=== PATIENT | female | born 1975 | race African-American/Black ===

== ENCOUNTER 2022-04-07 11:10 | Emergency (ER) | payer OTHER, SELFPAY ==
--- NOTE | ~2022-04-07 | XR_ITS ---
EXAMINATION: XR chest 2V DATE: 04/07/2022 13:19 INDICATION: Weakness during dialysis TECHNIQUE: frontal and lateral views of the chest were obtained. COMPARISON: None FINDINGS: Large-bore dual-lumen right internal jugular central venous catheter with distal tip in the right atr ium. Calcified nodule at the right lower lung zone consistent with old granulomatous disease. No othe r airspace opacities, pulmonary edema, pleural effusion or pneumothorax. The cardiomediastinal silhou ette is within normal limits for AP technique. A few skin sushil project over the lateral right lowe r thorax. IMPRESSION: 1. No acute cardiopulmonary disease. Reviewed, dictated and finalized at location A.
[2022-04-07 11:24] VITALS: BP 146/75; PULSE 85; RESP 18; TEMP 36.1; O2SAT 98
[2022-04-07 11:58] VITALS: PULSE 90; RESP 14
[2022-04-07 12:00] VITALS: PULSE 88; RESP 0
[2022-04-07 12:15] VITALS: PULSE 82; RESP 14
[2022-04-07 12:33] VITALS: PULSE 81; RESP 13
--- NOTE | 2022-04-07 12:40 | ECG_ITS ---
Measurements Intervals [place] Rate: 80 P: 17 ID: [id number] QRS: 17 QRSD: 95 T: 143 QT: 392 QTc: 453 Interpretive Statements SINUS RHYTHM LEFT VENTRICULAR HYPERTROPHY WITH ST-T CHANGE BORDERLINE R WAVE PROGRESSION, ANTERIOR LEADS INFERIOR INFARCT, AGE INDETERMINATE BASELINE ARTIFACT- I, II, AVR, AVL ABNORMAL ECG Electronically Signed On 04-07-2022 13:03:52 CDT by Adilson Gregorio D.O.
[2022-04-07 13:05] LABS: Basophils Percent Auto 0.4 % (0.2-1.2); Eosinophils Absolute Auto 0.1 K/mm3 (0-0.3); Eosinophils Percent Auto 1.8 % (0-4.4); Hematocrit 34.1 % (37.0-47.0); Immature Granulocyte Absolute 0.05 K/mm3 (0.00-0.031); Immature Granulocyte Percent A 0.9 % (0-0.5); Lymphocytes Absolute Auto 1.27 K/mm3 (0.9-3.2); Lymphocytes Percent Auto 23.2 % (18.3-44.2); Mean Corpuscular HGB Conc 29.3 g/dl (32-36); Mean Corpuscular Hemoglobin 27.1 pg (26-34); Mean Corpuscular Volume 92.4 fl (80-100); Mean Platelet Volume 9.6 fl (7.4-10.4); Monocytes Absolute Auto 0.6 K/mm3 (0.1-0.6); Monocytes Percent Auto 10.4 % (2.6-8.5); Neutrophils Absolute Auto 3.5 K/mm3 (1.3-6.7); Neutrophils Percent Auto 63.3 % (45.5-73.1); Platelet Count Result 285 k/mm3 (150-375); Red Blood Count 3.69 M/mm3 (4.2-5.4); Red Cell Distribution Width 17.9 % (11.5-14.5); White Blood Count 5.5 K/mm3 (4.5-10.0)
[2022-04-07 13:15] LABS: Alanine Aminotransferase 9 U/L (6-35); Albumin Level 3.6 g/dL (3.5-5.1); Alkaline Phosphatase 63 U/L (38-126); Anion Gap 10 mmol/L (8-16); Aspartate Amino Transferase 19 U/L (14-36); Bilirubin,Total 0.3 mg/dL (0.2-1.3); Blood Urea Nitrogen 47 mg/dL (7-17); Calcium 8.8 mg/dL (8.4-10.2); Carbon Dioxide 23 mmol/L (22-30); Chloride 106 mmol/L (98-107); Estimated CRCL calculation 8 ml/min; Estimated Glomerular Filt Rate 6; Glucose 187 mg/dL (65-110); Potassium 4.6 mmol/L (3.4-5.0); Sodium 139 mmol/L (137-145)
[2022-04-07 13:42] LABS: Hypochromasia 1+ (NORMAL); Platelet Estimate Adequate (Adequate)
[2022-04-07 13:43] LABS: Anisocytosis 1+ (NORMAL)
--- NOTE | 2022-04-07 13:47 | ED.GENADULT ---
HPI - General Adult General Chief complaint: Unspecified Stated complaint: I need my dialysis , covid + Time Seen by Provider: 04/07/22 12:31 Source: patient History of Present Illness HPI narrative: Patient presents requesting dialysis. Reports she was recently at [facility] approximately 5 days ago diagnosed with COVID. She was getting her dialysis was recovering and discharge. She went to dialysis today and reports she was sent to the emergency room as she is not able to receive dialysis as an outpatient with COVID. Patient reports she generally feels weak but has no other complaints. Review of Systems Review of Systems: CONSTITUTIONAL: Denies fever, chills, or sweats. EYES: Denies visual changes, redness, or discharge. ENT: Denies rhinorrhea, congestion, sore throat, or otalgia. CARDIOVASCULAR: Denies chest pain, palpitations, or edema. RESPIRATORY: Denies cough or dyspnea. GASTROINTESTINAL: Denies abdominal pain, nausea, vomiting, or diarrhea. GENITOURINARY: Denies dysuria or hematuria. SKIN: Denies rash or itching. MUSCULOSKELETAL: Denies back pain, joint pain, or myalgia. NEUROLOGIC: Denies headache, numbness, dizziness, or focal weakness. PSYCHIATRIC: Denies anxiety or depression. All systems reviewed & are unremarkable except as noted in HPI and below PMFSH Past Medical History Medical History CKD (chronic kidney disease) Exam Narrative: GENERAL: Well-appearing, well-nourished, and in no acute distress. HEAD: Normocephalic, atraumatic. EYES: PERRLA and EOMI. ENT: Nares clear, no rhinorrhea or epistaxis. Mucous membranes moist. NECK: Supple. No masses. No JVD CHEST: Clear to auscultation. No respiratory distress. No wheezes rales or rhonchi HEART: Regular rate and rhythm. No murmur heard. Normal peripheral pulses. ABDOMEN: Soft, nontender, nondistended, normal active bowel sounds. EXTREMITIES: Normal range of motion. No edema. SKIN: Warm, dry, no rash. NEURO: No focal deficits. Alert and oriented x3. PSYCH: Normal mood and affect. Course Reevaluation(s) Reevaluation #1: Case discussed with Dr. Rasheed patient's shelter supervisor who reached out to the dialysis center. Dialysis center reported patient presented 2 hours late and that is why she was unable to get dialysis today. She is able to receive dialysis as an outpatient despite her COVID-positive. She is scheduled for Monday. All this was reviewed with the patient. Patient is comfortable outpatient plan. Date: 04/07/22 Time: 13:48 Vital Signs Vital signs: Vital Signs Temperature 36.1 C L 04/07/22 11:24 Pulse Rate 85 04/07/22 11:24 Respiratory Rate 18 04/07/22 11:24 Blood Pressure 146/75 H 04/07/22 11:24 Pulse Oximetry 98 04/07/22 11:24 Temperature 36.1 C L 04/07/22 11:24 Pulse Rate 80 04/07/22 14:24 Respiratory Rate 12 04/07/22 14:24 Blood Pressure 174/97 H 04/07/22 14:24 Pulse Oximetry 98 04/07/22 14:24 Medical Decision Making MDM Narrative Medical decision making narrative: H&P as above, vss, pt looks clinically well, exam reassuring, labs clinic unremarkable for acute process, img without acute process, additional labs/img considered, symptomatic relief available as needed, on reevaluation pt continues to looks clinically well. Discussed case with Dr. Squires who reach out to dialysis center. Patient presented late to her her dialysis patient is scheduled for 830 Monday morning for dialysis given reassuring work-up she is able to wait until that time. Low concern for hyperkalemia severe sepsis, severe dehydration, pulmonary edema. plan to tx/monitor as op w/ pcm f/u findings/plan discussed with pt, pt agree/comfortable with plan, return precautions given Vital Signs Vital Signs: Vital Signs Temperature 36.1 C L 04/07/22 11:24 Pulse Rate 85 04/07/22 11:24 Respiratory Rate 18 04/07/22 11:24 Blood Pressure 146/75 H 04/07/22 11:24 Pulse Oxi
[2022-04-07 14:24] VITALS: BP 174/97; PULSE 80; RESP 12; O2SAT 98
--- NOTE | 2022-04-07 14:28 | PC.NURSE ---
patient's family called to come take patient home. Patient's family reports that they will be on the way to get her now.
== END 2022-04-07 14:31 | disposition home or self-care (01) ==
PROVIDERS: Emergency Provider Emergency Medicine
DX: N18.6 End stage renal disease (principal); U07.1 COVID-19; Z99.2 Dependence on renal dialysis; R94.31 Abnormal electrocardiogram [ECG] [EKG]; I51.7 Cardiomegaly
CPT/HCPCS: 36415; 71046; 80053; 85025; 93005; 99283